=== PATIENT | male | born 1995 | race American Indian/Alaskan Native ===

== ENCOUNTER 2021-06-01 19:55 | Emergency (ER) | payer SELFPAY ==
[2021-06-01] MEDS ORDERED: SODIUM CHLORIDE 0.9% 1000 ML 1,000 ML IV ONE (21:37)
[2021-06-01] MEDS ORDERED: ONDANSETRON 4 MG/2 ML INJ IV ONE (21:37)
--- NOTE | 2021-06-01 21:44 | Emergency Department Report ---
ED General Adult HPI - General Chief complaint: Nausea/Vomiting/Diarrhea Stated complaint: NAUSEA VOMITING AND DIARRHEA Time Seen by Provider: 06/01/21 21:36 Source: patient Mode of arrival: Ambulatory Limitations: No Limitations - History of Present Illness Initial comments: Patient 26-year-old male who presents with nausea vomiting diarrhea x3 days. S tates generalized malaise is exacerbated by p.o. intake. Symptoms relieved by nothing tried. Patient denies suspicious food journal contact. Patient is not Covid vaccinated. No fever or chills. Symptoms are improved with n.p.o. and rest. - Related Data Previous Rx's Medication Instructions Recorded Last Taken Type Ondansetron [Zofran Odt] 4 mg PO Q8HR #12 tab.rapdis 06/01/21 Unknown Rx Sulfamethoxazole/Trimethoprim 1 each PO BID 7 Days #14 tablet 06/01/21 Unknown Rx [Bactrim DS TAB] Allergies Allergy/AdvReac Type Severity Reaction Status Date / Time No Known Allergies Allergy Verified 06/01/21 21:49 ED Review of Systems ROS: Stated complaint: NAUSEA VOMITING AND DIARRHEA Other details as noted in HPI Constitutional: chills, malaise Eyes: denies: eye pain, eye discharge, vision change ENT: denies: ear pain, throat pain Respiratory: denies: cough, shortness of breath, wheezing Cardiovascular: denies: chest pain, palpitations Endocrine: no symptoms reported Gastrointestinal: abdominal pain, nausea, vomiting Genitourinary: denies: urgency, dysuria Musculoskeletal: denies: back pain, joint swelling, arthralgia Skin: denies: rash, lesions Neurological: denies: headache, weakness, numbness, paresthesias, confusion, vertigo Psychiatric: denies: anxiety, depression Hematological/Lymphatic: denies: easy bleeding, easy bruising ED Past Medical Hx - Past Medical History Previous Medical History?: No - Surgical History Past Surgical History?: No - Medications Home Medications: Home Medications Medication Instructions Recorded Confirmed Last Taken Type Ondansetron [Zofran Odt] 4 mg PO Q8HR #12 tab.rapdis 06/01/21 Unknown Rx Sulfamethoxazole/Trimethoprim 1 each PO BID 7 Days #14 tablet 06/01/21 Unknown Rx [Bactrim DS TAB] ED Physical Exam - General Limitations: No Limitations General appearance: alert, in no apparent distress - Head Head exam: Present: normocephalic, normal inspection - Eye Eye exam: Present: normal appearance, EOMI Pupils: Present: normal accommodation - ENT ENT exam: Present: mucous membranes moist - Neck Neck exam: Present: normal inspection, full ROM. Absent: tenderness - Respiratory Respiratory exam: Present: normal lung sounds bilaterally. Absent: respiratory distress, wheezes, stridor, chest wall tenderness - Cardiovascular Cardiovascular Exam: Present: regular rate, normal rhythm, normal heart sounds. Absent: systolic murmur, diastolic murmur, rubs, gallop - GI/Abdominal GI/Abdominal exam: Present: soft, normal bowel sounds. Absent: distended, tenderness, guarding, rebound, rigid, bruit, hernia - Rectal Rectal exam: Present: deferred - Extremities Exam Extremities exam: Present: normal inspection, full ROM. Absent: tenderness - Back Exam Back exam: Present: normal inspection, full ROM. Absent: CVA tenderness (R), CVA tenderness (L) - Neurological Exam Neurological exam: Present: alert, oriented X3, CN II-XII intact, normal gait - Psychiatric Psychiatric exam: Present: normal affect, normal mood - Skin Skin exam: Present: warm, dry, intact, normal color. Absent: rash ED Course Vital Signs 06/01/21 19:59 Temperature 98.0 F Pulse Rate 95 H Respiratory 18 Rate Blood Pressure 125/74 O2 Sat by Pulse 99 Oximetry ED Medical Decision Making - Lab Data Result diagrams: 06/01/21 21:40 06/01/21 21:40 Labs 06/01/21 06/01/21 06/01/21 21:40 21:40 Unknown WBC 3.9 L RBC 6.39 H Hgb 17.5 H Hct 53.6 H MCV 84 MCH 27 L MCHC 33 RDW 13.3 Plt Count 250 [place] % (Auto) [employer] Sodium 138 Potassium 4.1 Chloride 94.7 L Carbon Dioxide 30 Anion Gap 17 BUN 12 Creatinine 1.6 H Estimated GFR > 60 BUN/Creatinine Ratio 8 Glucose 160 H Calcium 9.6 Total Bilirubin 0.30 AST 20 ALT 19 Alkaline Phosphatase 43 Total Protein 8.2 Albumin 4.2 Albumin/Globulin Ratio 1.1 Lipase 22 Urine Color Erika Urine Turbidity Hazy Urine pH 5.0 Ur Specific [place] 1.031 H Urine Protein 100 mg/dl Urine Glucose (UA) 50 Urine Ketones 20 Urine Blood Sm Urine Nitrite Neg Urine Bilirubin Neg Urine Urobilinogen < 2.0 Ur Leukocyte Esterase Sm Urine WBC (Auto) 63.0 H Urine RBC (Auto) 5.0 U Epithel Cells (Auto) 1.0 Urine Mucus 3+ - Medical Decision Making Patient now tolerating p.o. intake without nausea vomiting. UA noted for WBCs, small leukocytes, patient denies dysuria , there is no hematuria. Treat for UTI, DC to home with prescriptions, follow-up with your doctor in 2 to 3 days, continue to hydrate, patient will be DC'd home in stable condition at this time. Critical care attestation.: If time is entered above; I have spent that time in minutes in the direct care of this critically ill patient, excluding procedure time. ED Disposition Clinical Impression: Mild dehydration UTI (urinary tract infection) Qualifiers: Urinary tract infection type: acute cystitis Hematuria presence: without hematuria Qualified Code(s): N30.00 - Acute cystitis without hematuria Disposition: HOME / SELF CARE / HOMELESS Is pt being admited?: No Does the pt Need Aspirin: No Condition: Stable Instructions: Urinary Tract Infection, Adult, Rehydration, Adult Additional Instructions: Take medications as prescribed, follow-up with your doctor in 2 to 3 days, 10 hydrate as directed. Return to emergency department should symptoms worsen. Prescriptions: Sulfamethoxazole/Trimethoprim [Bactrim DS TAB] 1 each PO BID 7 Days #14 tablet Ondansetron [Zofran Odt] 4 mg PO Q8HR #12 tab.rapdis Referrals: CATALINA PENG MD [Primary Care Provider] - 3-5 Days DINO AQUINO MD [Staff Physician] - 3-5 Days Forms: Work/School Release Form(ED) Time of Disposition: 22:57
[2021-06-01 22:04] LABS: Hematocrit 53.6 % (35.5-45.6); Hemoglobin 17.5 gm/dl (11.8-15.2); Mean Corpuscular HGB Conc 33 % (32-34); Mean Corpuscular Volume 84 fl (84-94); Platelet Count 250 K/mm3 (140-440); Red Blood Count 6.39 M/mm3 (3.65-5.03); Red Cell Distribution Width 13.3 % (13.2-15.2)
[2021-06-01 22:09] LABS: Bilirubin,Urine NEG (Negative); Blood,Urine SM (Negative); Color,Urine Amber (Yellow); Mucus,Urine 3+ /HPF; Urobilinogen,Urine < 2.0 mg/dL (<2.0)
[2021-06-01 22:24] LABS: Alanine Aminotransferase 19 units/L (7-56); Albumin 4.2 g/dL (3.9-5); BUN/Creatinine Ratio 8; Blood Urea Nitrogen 12 mg/dL (9-20); Calcium 9.6 mg/dL (8.4-10.2); Hemolysis Index 14
[2021-06-01 23:14] LABS: Total Cells Counted 100
[2021-06-01 23:15] VITALS: BP 141/86
[2021-06-01 23:15] LABS: Platelet Estimate Consistent w Auto; RBC Morphology Normal
== END 2021-06-01 23:16 | disposition home or self-care (01) ==
LOC: ED 19:55
DX: E86.0 Dehydration (principal); N39.0 Urinary tract infection, site not specified
CPT/HCPCS: 36415; 80053; 81001; 83690; 85007; 85025; 87086; 96361; 96374; 99283; J2405; J7030; Q0162

== ENCOUNTER 2021-09-08 19:53 | Emergency (ER) | payer SELFPAY ==
--- NOTE | 2021-09-08 21:16 | XRay Report ---
Left ankle 3 views INDICATION: Ankle pain FINDINGS: Diffuse swelling in the lateral ankle. Alignment appears normal. Calcaneus appears normal. No acute fracture dislocation. Signer Name: Ricardo Lynn MD Signed: 09/08/2021 9:11 PM Workstation Name: [id number]
--- NOTE | 2021-09-09 05:07 | Emergency Department Report ---
ED Lower Extremity HPI - General Chief Complaint: Extremity Injury, Lower Stated Complaint: LT ANKLE PAIN Source: patient Mode of arrival: Ambulatory Limitations: No Limitations - History of Present Illness Initial Comments: Patient is a 26-year-old -Tu[place] male with no past medical history presents to the ED with complaint of acute onset persistent left ankle pain and swelling after he fell during a basketball game 2 days ago and twisted his left ankle. Patient states that the pain has been worsening in the last 24 hours such that weightbearing or walking makes the pain worse. Patient denies head or neck injuries, dizziness, syncope, seizures, chest pain or shortness of breath, hip pain, low back pain, numbness and tingling or weakness of upper and lower extremities bilaterally. MD Complaint: ankle injury (Left ankle pain and swelling) -: Sudden, days(s) (2) Injury: Ankle: Left (Left ankle pain and swelling) Type of Injury: eversion Place: street/outdoors Severity: severe Severity scale (0 -10): 7 Improves With: nothing Worsens With: weight bearing, movement, palpation Context: fall (Fell during basketball practice) Associated Symptoms: able to partially bear weight. denies: snap/pop sensation, swelling, numbness, unable to bear weight - Related Data Previous Rx's Medication Instructions Recorded Last Taken Type Ondansetron [Zofran Odt] 4 mg PO Q8HR #12 tab.rapdis 06/01/21 Unknown Rx Sulfamethoxazole/Trimethoprim 1 each PO BID 7 Days #14 tablet 06/01/21 Unknown Rx [Bactrim DS TAB] Baclofen 20 mg PO Q12H PRN #20 tab 09/09/21 Unknown Rx Ibuprofen [Motrin] 800 mg PO Q8HR PRN #30 tablet 09/09/21 Unknown Rx Allergies Allergy/AdvReac Type Severity Reaction Status Date / Time No Known Allergies Allergy Verified 06/01/21 21:49 ED Review of Systems ROS: Stated complaint: LT ANKLE PAIN Other details as noted in HPI Constitutional: denies: chills, fever Eyes: denies: eye pain, eye discharge, vision change ENT: denies: ear pain, throat pain Respiratory: denies: cough, shortness of breath, wheezing Cardiovascular: denies: chest pain, palpitations Endocrine: no symptoms reported Gastrointestinal: denies: abdominal pain, nausea, vomiting, diarrhea Genitourinary: denies: urgency, dysuria Musculoskeletal: joint swelling, arthralgia (left ankle pain). denies: back pain Skin: denies: rash, lesions Neurological: denies: headache, weakness, paresthesias Psychiatric: denies: anxiety, depression Hematological/Lymphatic: denies: easy bleeding, easy bruising ED Past Medical Hx - Medications Home Medications: Home Medications Medication Instructions Recorded Confirmed Last Taken Type Ondansetron [Zofran Odt] 4 mg PO Q8HR #12 tab.rapdis 06/01/21 Unknown Rx Sulfamethoxazole/Trimethoprim 1 each PO BID 7 Days #14 tablet 06/01/21 Unknown Rx [Bactrim DS TAB] Baclofen 20 mg PO Q12H PRN #20 tab 09/09/21 Unknown Rx Ibuprofen [Motrin] 800 mg PO Q8HR PRN #30 tablet 09/09/21 Unknown Rx ED Physical Exam - General Limitations: No Limitations General appearance: alert, in no apparent distress - Head Head exam: Present: atraumatic, normocephalic, normal inspection - Eye Eye exam: Present: normal appearance, PERRL, EOMI Pupils: Present: normal accommodation - ENT ENT exam: Present: normal exam, normal orophraynx, mucous membranes moist, TM's normal bilaterally, normal external ear exam - Neck Neck exam: Present: normal inspection, full ROM. Absent: tenderness - Respiratory Respiratory exam: Present: normal lung sounds bilaterally. Absent: respiratory distress, wheezes, rales, rhonchi, chest wall tenderness, accessory muscle use - Cardiovascular Cardiovascular Exam: Present: regular rate, normal rhythm, normal heart sounds. Absent: systolic murmur, diastolic murmur, rubs, gallop - GI/Abdominal GI/Abdominal exam: Present: soft, normal bowel sounds. Absent: tenderness, guarding, rebound, hyperactive bowel sounds, hypoactive bowel sounds, organomegaly, mass - Extremities Exam Extremities exam: Present: normal inspection, full ROM, tenderness (Palpable left ankle tenderness with mild swelling), normal capillary refill, joint swelling. Absent: pedal edema, calf tenderness - Back Exam Back exam: Present: normal inspection, full ROM. Absent: tenderness, CVA tenderness (R), CVA tenderness (L), muscle spasm, paraspinal tenderness, vertebral tenderness - Neurological Exam Neurological exam: Present: alert, oriented X3, CN II-XII intact, normal gait, reflexes normal - Psychiatric Psychiatric exam: Present: normal affect, normal mood - Skin Skin exam: Present: warm, dry, intact, normal color. Absent: rash ED Course Vital Signs 09/08/21 20:36 Temperature 98.2 F Pulse Rate 81 Respiratory 18 Rate Blood Pressure 111/68 O2 Sat by Pulse 98 Oximetry ED Lower Extremity MDM - Radiology Data Radiology results: report reviewed, image reviewed [facility] [address] [place] [address] XRay Report Signed Patient: BESSY LLOYD MR#: [id number] : 1995 Acct:[id number] Age/Sex: 26 / M ADM Date: 09/08/21 Loc: ED Attending Dr: Ordering Physician: MALATHI العراقي MD Date of Service: 09/08/21 Procedure(s): XR ankle 3+V LT Accession Number(s): [id number] cc: ED MD MALCOM Fluoro Time In Minutes: Left ankle 3 views INDICATION: Ankle pain FINDINGS: Diffuse swelling in the lateral ankle. Alignment appears normal. Calcaneus appears normal. No acute fracture dislocation. Signer Name: Ricardo Lynn MD Signed: 09/08/2021 9:11 PM Workstation Name: [id number] Transcribed By: CW Dictated By: MIGUEL LYNN MD Electronically Authenticated By: MIGUEL LYNN MD Signed Date/Time: 09/08/212110 DD/ 10 TD/TT: - Medical Decision Making This is a 26-year-old -[place] male with no past medical history presents to the ED with complaint of acute onset persistent left ankle pain and swelling after he fell during a basketball game 2 days ago and twisted his left ankle. Patient states that the pain has been worsening in the last 24 hours such that weightbearing or walking makes the pain worse. The ED, patient is alert and oriented x3 and is not in any distress. Patient was treated for pain in the ED. Left ankle x-ray showed no acute fractures or subluxations but soft tissue swelling. Patient left ankle was splinted with Damian wrap and the patient was fitted with crutches. Patient will discharge home on medications for pain and advised to follow-up with his primary care physician in 5 to 7 days for reevaluation or return to the ED immediately if symptoms get worse. - Differential Diagnosis ankle sprain; ankle fracture; muscle strain Critical care attestation.: If time is entered above; I have spent that time in minutes in the direct care of this critically ill patient, excluding procedure time. ED Disposition Clinical Impression: Severe sprain of left ankle Qualifiers: Encounter type: initial encounter Qualified Code(s): S93.402A - Sprain of unspecified ligament of left ankle, initial encounter Muscle strain of left ankle Qualifiers: Encounter type: initial encounter Qualified Code(s): S96.912A - Strain of unspecified muscle and tendon at ankle and foot level, left foot, initial encounter Disposition: HOME / SELF CARE / HOMELESS Is pt being admited?: No Does the pt Need Aspirin: No Condition: Stable Instructions: Ankle Sprain, [id number], Muscle Strain, [id number] Additional Instructions: Left ankle x-ray showed no acute fractures or subluxations. Therefore take medications with food, drink plenty of fluids and follow-up with your primary care physician in 7 to 10 days for reevaluation. Return to the ED immediately if symptoms get worse. Prescriptions: Baclofen 20 mg PO Q12H PRN #20 tab PRN Reason: Muscle Spasm Ibuprofen [Motrin] 800 mg PO Q8HR PRN #30 tablet PRN Reason: Pain , Severe (7-10) Referrals: SHARON DE LA CRUZ MD [Primary Care Provider] - 3-5 Days Time of Disposition: 05:09 Print Language: GREEK
[2021-09-09 06:01] VITALS: BP 112/72
== END 2021-09-09 06:01 | disposition home or self-care (01) ==
LOC: ED 19:53
DX: S93.402A Sprain of unspecified ligament of left ankle, initial encounter (principal); S96.912A Strain of unspecified muscle and tendon at ankle and foot level, left foot, initial encounter; Z79.899 Other long term (current) drug therapy; W18.39XA Other fall on same level, initial encounter; Y93.67 Activity, basketball; Y92.89 Other specified places as the place of occurrence of the external cause; Y99.8 Other external cause status
CPT/HCPCS: 99283

== ENCOUNTER 2022-02-07 17:38 | Emergency (ER) | payer SELFPAY ==
--- NOTE | 2022-02-07 19:02 | XRay Report ---
LEFT KNEE 3 VIEW(S) INDICATION / CLINICAL INFORMATION: injury COMPARISON: None available. FINDINGS: BONES / JOINT(S): No acute fracture or subluxation. No significant arthritis. SOFT TISSUES: No significant abnormality. ADDITIONAL FINDINGS: None. Signer Name: Jose Loyd MD Signed: 02/07/2022 6:58 PM Workstation Name: [id number]
[2022-02-07 22:52] VITALS: BP 151/50
--- NOTE | 2022-02-08 03:08 | Emergency Department Report ---
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) Associated Symptoms: snap/pop sensation, swelling, able to partially bear weight - Related Data Previous Rx's Medication Instructions Recorded Last Taken Type Ondansetron [Zofran Odt] 4 mg PO Q8HR #12 tab.rapdis 06/01/21 Unknown Rx Sulfamethoxazole/Trimethoprim 1 each PO BID 7 Days #14 tablet 06/01/21 Unknown Rx [Bactrim DS TAB] Baclofen 20 mg PO Q12H PRN #20 tab 09/09/21 Unknown Rx Ibuprofen [Motrin] 800 mg PO Q8HR PRN #30 tablet 09/09/21 Unknown Rx Ketorolac [Toradol] 10 mg PO Q6H PRN #14 02/08/22 Unknown Rx Allergies Allergy/AdvReac Type Severity Reaction Status Date / Time No Known Allergies Allergy Verified 02/07/22 18:40 ED Review of Systems ROS: Stated complaint: LEFT KNEE PAIN Other details as noted in HPI Comment: All other systems reviewed and negative ED Past Medical Hx - Past Medical History Previous Medical History?: No - Surgical History Past Surgical History?: No - Medications Home Medications: Home Medications Medication Instructions Recorded Confirmed Last Taken Type Ondansetron [Zofran Odt] 4 mg PO Q8HR #12 tab.rapdis 06/01/21 Unknown Rx Sulfamethoxazole/Trimethoprim 1 each PO BID 7 Days #14 tablet 06/01/21 Unknown Rx [Bactrim DS TAB] Baclofen 20 mg PO Q12H PRN #20 tab 09/09/21 Unknown Rx Ibuprofen [Motrin] 800 mg PO Q8HR PRN #30 tablet 09/09/21 Unknown Rx Ketorolac [Toradol] 10 mg PO Q6H PRN #14 02/08/22 Unknown Rx ED Physical Exam - General Limitations: No Limitations General appearance: alert, in no apparent distress - Head Head exam: Present: atraumatic, normocephalic - Eye Eye exam: Present: normal appearance, PERRL, EOMI Pupils: Present: normal accommodation - ENT ENT exam: Present: normal exam, normal orophraynx, mucous membranes moist - Neck Neck exam: Present: normal inspection - Respiratory Respiratory exam: Present: normal lung sounds bilaterally. Absent: respiratory distress - Cardiovascular Cardiovascular Exam: Present: regular rate, normal rhythm. Absent: systolic murmur, diastolic murmur, rubs, gallop - GI/Abdominal GI/Abdominal exam: Present: soft, normal bowel sounds - Rectal Rectal exam: Present: deferred - Extremities Exam Extremities exam: Present: normal inspection - Back Exam Back exam: Present: normal inspection - Neurological Exam Neurological exam: Present: alert, oriented X3 - Psychiatric Psychiatric exam: Present: normal affect, normal mood - Skin Skin exam: Present: warm, dry, intact, normal color. Absent: rash ED Course Vital Signs 02/07/22 02/07/22 18:38 22:51 Temperature 98.5 F 98.3 F Pulse Rate 76 69 Respiratory 17 18 Rate Blood Pressure 142/75 151/50 [Left] O2 Sat by Pulse 99 99 Oximetry - Orthopedic Splinting/Casting Injury #1 Side: left Lower Extremity Injury Location: knee Lower Extremity Immobilizer: knee immobilizer Other Orthopedic Equipment: other Critical care attestation.: If time is entered above; I have spent that time in minutes in the direct care of this critically ill patient, excluding procedure time. ED Disposition Clinical Impression: Knee effusion, left, Left knee pain Disposition: 01 HOME / SELF CARE / HOMELESS Is pt being admited?: No Does the pt Need Aspirin: No Condition: Stable Instructions: Knee Effusion, How to Use Cold Therapy, [id number], Acute Knee Pain, Adult, [id number], How to Use a Knee Brace Prescriptions: Ketorolac [Toradol] 10 mg PO Q6H PRN #14 PRN Reason: Pain Referrals: [facility] [Provider Group] - 3-5 Days
[2022-02-08] MEDS ORDERED: HYDROcodone/ACETAMINOPHEN 5-325 MG TAB PO STA (03:10)
== END 2022-02-08 03:59 | disposition home or self-care (01) ==
LOC: ED 17:38
DX: M25.462 Effusion, left knee (principal); M25.562 Pain in left knee
CPT/HCPCS: 99283